=== PATIENT | female | born 1955 | race Caucasian/White ===

== ENCOUNTER 2019-04-18 13:49 | Emergency (ER) | payer BC ==
[~2019-04-18] VITALS: Ht 162.6 cm; Wt 55.0 kg
[2019-04-18 13:57] VITALS: BP 150/72
[2019-04-18] MEDS ORDERED: KETOROLAC 30 MG/1 ML ONE (14:19)
[2019-04-18] MEDS ORDERED: DIAZEPAM 5 MG TABLET ONE (14:20)
[2019-04-18] MEDS ORDERED: BUPIVACAINE 0.25% ONE (14:20)
[2019-04-18] MEDS ORDERED: KETOROLAC 30 MG/1 ML IM ONE (14:30)
[2019-04-18] MEDS ORDERED: DIAZEPAM 5 MG TABLET PO ONE (14:30)
--- NOTE | 2019-04-18 15:15 | NUR ---
is at the bedside for bipuvicaine injection.
[2019-04-24] MEDS ORDERED: DIAZ5TAB PO (14:17)
[2019-04-30] MEDS ORDERED: METH750T2 PO (14:51)
[2019-04-30] MEDS ORDERED: NAPR220C2 PO (14:52)
[2019-05-06] MEDS ORDERED: IBUP-1222 PO (10:47)
[2019-05-06] MEDS ORDERED: PRED10TA PO (10:47)
[2019-05-06] MEDS ORDERED: ONDA4TAB13 SL (10:47)
[2019-06-13] MEDS ORDERED: RANI-448 PO (09:39)
[2019-06-15] MEDS ORDERED: LISI5TAB7 PO (17:26)
[2019-06-15] MEDS ORDERED: FURO40TA6 PO (17:26)
[2019-06-15] MEDS ORDERED: ASPI-650 PO (17:26)
[2019-06-15] MEDS ORDERED: SPIR25TA PO (17:26)
[2019-07-02] MEDS ORDERED: GABA300C10 PO (14:49)
[2019-07-02] MEDS ORDERED: SPIR25TA5 PO (14:49)
[2019-07-02] MEDS ORDERED: ASPI81TA45 PO (14:49)
[2019-07-02] MEDS ORDERED: LISI5TAB7 PO (14:49)
== END 2019-04-18 16:23 | disposition home or self-care (01) ==
LOC: ED 14:26
DX: M54.81 Occipital neuralgia (principal); G44.201 Tension-type headache, unspecified, intractable; Z90.49 Acquired absence of other specified parts of digestive tract
CPT/HCPCS: 64402; 99284; J1885

== ENCOUNTER 2019-04-24 12:13 | Emergency (ER) | payer BC ==
[~2019-04-24] VITALS: Ht 162.6 cm; Wt 54.5 kg
[2019-04-24 15:07] VITALS: BP 140/80
== END 2019-04-24 15:12 | disposition home or self-care (01) ==
LOC: ED 14:50
DX: G44.211 Episodic tension-type headache, intractable (principal); Z87.891 Personal history of nicotine dependence; Z90.89 Acquired absence of other organs
CPT/HCPCS: 36415; 70450; 71045; 72125; 80048; 81001; 82040; 84484; 85025; 87086; 93005; 96374; 96375; 99284; J1200; J1885; J2765

== ENCOUNTER 2019-04-30 14:08 | Emergency (ER) | payer BC ==
[~2019-04-30] VITALS: Ht 162.6 cm; Wt 56.9 kg
[2019-04-30 16:36] VITALS: BP 133/74
== END 2019-04-30 16:37 | disposition home or self-care (01) ==
LOC: ED 16:31
DX: G44.219 Episodic tension-type headache, not intractable (principal); Z90.49 Acquired absence of other specified parts of digestive tract
CPT/HCPCS: 36415; 64405; 80053; 85025; 96372; 99284; J1885; J3301; S0020

== ENCOUNTER 2019-05-04 10:11 | Inpatient (IN) | payer BC ==
[~2019-05-04] VITALS: Ht 162.6 cm; Wt 61.5 kg
[2019-05-06 08:18] VITALS: BP 143/83
== END 2019-05-06 13:00 | disposition home or self-care (01) | DRG 552 ==
LOC: ED 10:29 → SUATTDRO 12:18 → EDIP 12:26 → 3NE 13:43
PROVIDERS: ADMIT Internal Medicine; ATTEND Internal Medicine
DX: M54.81 Occipital neuralgia (principal); D64.9 Anemia, unspecified; I10 Essential (primary) hypertension; M48.02 Spinal stenosis, cervical region; M50.323 Other cervical disc degeneration at C6-C7 level; Z80.8 Family history of malignant neoplasm of other organs or systems; Z90.49 Acquired absence of other specified parts of digestive tract
CPT/HCPCS: 36415; 70553; 80048; 83540; 83550; 84443; 85025; 85651; 96374; 96375; A9585; G0378; J1650; J1885; J2405; C9113; J1200; J2060; J2270; J2765; J2920; J2930; J7030

== ENCOUNTER 2020-03-27 10:06 | Outpatient (CLI) | payer BC ==
[~2020-03-27 10:06] MED LIST: ASPI-650 PO; ASPI81TA45 PO; DIAZ5TAB PO; FURO40TA6 PO; GABA300C10 PO; IBUP-1222 PO; LISI5TAB7 PO; METH750T2 PO; NAPR220C2 PO; ONDA4TAB13 SL; PRED10TA PO; RANI-460 PO; SPIR25TA PO; SPIR25TA5 PO
== END 2020-03-27 23:59 | disposition home or self-care (01) ==
LOC: CFH 10:06
PROVIDERS: ATTEND Internal Medicine Cardiovascular Disease
DX: I08.0 Rheumatic disorders of both mitral and aortic valves (principal); I42.9 Cardiomyopathy, unspecified
CPT/HCPCS: 93306

== ENCOUNTER → 2020-04-29 | Outpatient (CLI) | payer BC ==
[~2020-04-29] MED LIST changes: +OMNIPAQUE 350 MG/ML, 100ML BOTTLE ONE
== END | disposition home or self-care (01) ==
LOC: CFH 12:13
PROVIDERS: ATTEND Internal Medicine Cardiovascular Disease
DX: I77.810 Thoracic aortic ectasia (principal)
CPT/HCPCS: 71275; 82565; Q9967

== ENCOUNTER → 2021-04-07 | Outpatient (CLI) | payer OTHER ==
[~2021-04-07] MED LIST changes: -ASPI-650 PO; +ASPI325T20 PO; +METH-640 PO; -METH750T2 PO; -OMNIPAQUE 350 MG/ML, 100ML BOTTLE ONE
== END | disposition home or self-care (01) ==
LOC: CVU 07:44
PROVIDERS: ATTEND Internal Medicine Cardiovascular Disease
DX: I08.3 Combined rheumatic disorders of mitral, aortic and tricuspid valves (principal); R06.02 Shortness of breath; I42.9 Cardiomyopathy, unspecified
CPT/HCPCS: 93306